=== PATIENT | female | born 1955 | race Caucasian/White ===

== ENCOUNTER 2019-01-23 08:04 | Day surgery (SDC) | payer MEDICARE, OTHER, MEDICAID ==
[~2019-01-23 08:04] MED LIST: CEFAZOLIN 2 GM/50 ML (PMX) 50 ML IVPB
[2019-01-23 09:46] LABS: ADD MAN DIFF? NO
[2019-01-23] MEDS: SOD CHLORIDE 0.9% 1,000 ML IV (09:48)
[2019-01-23 09:49] LABS: WHITE BLOOD COUNT 6.3 10^3/ul (4.8-10.8)
[2019-01-23 09:49] LABS: BASOPHIL # 0.1 10^3/ul (0.0-0.1); BASOPHILS % 0.8 % (0.0-2.0); EOSINOPHILS # 0.2 10^3/ul (0.0-0.5); EOSINOPHILS % 2.4 % (0.0-7.0); HEMATOCRIT 47.4 % (37.0-47.0); HEMOGLOBIN 15.2 g/dl (12.0-16.0); LYMPHOCYTES # 1.7 10^3/ul (0.8-2.9); LYMPHOCYTES % 27.4 % (15.0-51.0); MEAN CORPUSCULAR HEMOGLOBIN 27.8 pg (29.0-33.0); MEAN CORPUSCULAR HGB CONC 32.1 g/dl (32.0-37.0); MEAN CORPUSCULAR VOLUME 86.7 fl (82.0-101.0); MEAN PLATELET VOLUME 11.1 fl (7.4-10.4); MONOCYTE # 0.4 10^3/ul (0.3-0.9); MONOCYTES % 6.2 % (0.0-11.0); PLATELET COUNT 192 10^3/UL (140-415); RED BLOOD COUNT 5.47 10^6/ul (4.20-5.40); RED CELL DISTRIBUTION WIDTH 13.2 % (11.5-14.5)
[2019-01-23 10:09] LABS: INR 0.89; PROTIME 12.1 Sec (11.9-14.9); PT RATIO 0.9
[2019-01-23 10:10] LABS: PARTIAL THROMBOPLASTIN TIME 26.1 Sec (23.0-35.0)
[2019-01-23 10:14] LABS: ALANINE AMINOTRANSFERASE 46 IU/L (13-69); ALBUMIN 4.4 g/dl (3.3-4.9); ALBUMIN/GLOBULIN RATIO 1.62; ALKALINE PHOSPHATASE 90 IU/L (42-121); ANION GAP 8 (5-13); ASPARTATE AMINO TRANSFERASE 29 IU/L (15-46); BILIRUBIN,INDIRECT 0.9 mg/dl (0-1.1); BILIRUBIN,TOTAL 0.9 mg/dl (0.2-1.3); BLOOD UREA NITROGEN 18 mg/dl (7-20); CALCIUM 9.5 mg/dl (8.4-10.2); CARBON DIOXIDE 27 mmol/L (21-31); CHLORIDE 104 mmol/L (97-110); CREATININE 0.67 mg/dl (0.44-1.00); Estimated GFR > 60 mL/min (>60); GLUCOSE 136 mg/dl (70-220); POTASSIUM 4.2 mmol/L (3.5-5.1); SODIUM 139 mmol/L (135-144); TOTAL PROTEIN 7.1 g/dl (6.1-8.1)
[2019-01-23] MEDS ORDERED: DIPHENHYDRAMINE 50 MG INJ IV (10:30)
[2019-01-23] MEDS ORDERED: MEPERIDINE 25 MG INJ IV (10:30)
[2019-01-23] MEDS ORDERED: HYDROmorphONE 1 MG/5 ML IV SYRINGE IV ×2 (10:30)
[2019-01-23] MEDS ORDERED: OXYCODONE/ACETAMINOPHEN (5/325) TAB PO (10:30)
[2019-01-23] MEDS ORDERED: FENTAnyl 50 MCG/ML VIAL IV ×3 (10:30)
[2019-01-23] MEDS ORDERED: LABETALOL HCL 20MG INJ IV (10:30)
[2019-01-23] MEDS ORDERED: hydrALAzine 20 MG INJ IV (10:30)
[2019-01-23] MEDS ORDERED: MIDAZOLAM 1 MG/ML 2 ML INJ (10:32)
[2019-01-23] MEDS ORDERED: PROPOFOL 20 ML ×2 (10:40→13:11)
[2019-01-23] MEDS ORDERED: METOCLOPRAMIDE 10 MG INJ (10:40)
[2019-01-23] MEDS ORDERED: ONDANSETRON 4 MG INJ (10:40)
[2019-01-23] MEDS ORDERED: CEFAZOLIN 1 GM INJ (10:40)
[2019-01-23] MEDS ORDERED: FENTAnyl 50 MCG/ML VIAL (10:40)
[2019-01-23] MEDS ORDERED: EPHEDrine 25 MG/5 ML SYG (11:16)
[2019-01-23] MEDS ORDERED: HYDROmorphONE 2 MG/ML SYG ×2 (11:27→13:11)
[2019-01-23] MEDS ORDERED: HYDROCODONE/APAP (7.5/325) TAB PO (12:00)
[2019-01-23] MEDS: HYDROmorphONE 1 MG/5 ML IV SYRINGE IV (12:29)
[2019-01-23] MEDS: ONDANSETRON 4 MG INJ IV (12:30)
[2019-01-23] MEDS: OXYCODONE/ACETAMINOPHEN (5/325) TAB PO (12:30)
== END 2019-01-23 14:22 | disposition home or self-care (01) ==
LOC: SDS 08:04
DX: N60.91 Unspecified benign mammary dysplasia of right breast (principal); E11.9 Type 2 diabetes mellitus without complications; I10 Essential (primary) hypertension
CPT/HCPCS: 19120; 71045; 80053; 82962; 85025; 85610; 85730; 88307; 93005